=== PATIENT | female | born 1985 | race Hispanic/Latino ===

== ENCOUNTER 2017-01-20 21:50 | Emergency (ER) | payer MEDICAID ==
[~2017-01-20] VITALS: Ht 147.3 cm; Wt 59.1 kg
[2017-01-20 22:06] VITALS: BP 102/71; PULSE 70; RESP 16; O2SAT 100
[2017-01-20 22:51] LABS: BASOPHILS % (AUTO) 0.2 % (0-3); EOSINOPHILS % (AUTO) 2.4 % (0-5); MONOCYTES % (AUTO) 10.4 % (4-12); Mean Corpuscular Hemoglobin 30.6 pg (27.0-35.0); Mean Corpuscular Volume 86.9 fL (81-100); NEUTROPHILS % (AUTO) 61.3 % (40-74); Platelet Count 247 bil/L (150-400)
--- NOTE | 2017-01-20 22:57 | ED.REPORT ---
HPI-Abd Pain F Under 40 Date of Service Jan 20, 2017 ED Provider: Romie Garcia MD Pt is a healthy 32 y/o female presenting to the ED with family c/o epigastric abdominal pain onset yesterday. She is unable to describe the pain and reports it is non-radiating. The pain is not brought on by anything and has decreased somewhat spontaneously. She c/o associated nausea, pleuritic abdominal pain. She denies fever, vomiting. She has not experienced this pain in the past. It is unknown if she is , last period unknown. 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 Nursing Notes Stated Complaint: HEART PAIN Chief Complaint: Chest Pain Nursing Notes Reviewed: Yes ([employer], [email or web address] not reconciled) Allergies: Coded Allergies: No Known Allergies (Unverified Allergy, Unknown, 01/20/17) Scheduled Pnv95/Ferrous Fumarate/FA ( Vitamin Tablet) 28 Mg Iron-800 Mcg Tablet 1 EACH PO DAILY Scheduled PRN Acetaminophen (Acetaminophen) 325 Mg Tablet 650-975 MG PO Q4H PRN PRN For Pain General Time Seen by MD: 22:52 Chief Complaint Abdominal pain Hx Obtained From: Patient, Spouse, Daughter Arrived By: Walk-in Sudden in Onset?: No Onset Occurred: Yesterday Symptom Duration: Since onset Progression since Onset: Constant Location: : Epigastric Quality: Painful Radiation: : Does not radiate Severity: Current: Mild Severity: Maximum: Moderate Recent Healthcare: No recent doctor visit Similar Sx Previous: No Past Medical History Past Medical History Past Surgical History Denies Smoking History Never Smoker Social History Other Social History: Good social support, , Lives with children Ambulatory Status Independent Review of Systems Constitutional: Denies: Chills, Fatigue, Fever Respiratory: Reports: Pleuritic pain, Denies: Non-productive cough, Shortness of breath Cardiovascular: Denies: Chest pain, Edema GI: Reports: Abdominal pain, Nausea, Denies: Vomiting Complete sys rev & neg: except as marked. Neurologic: Denies: Headache, Lightheaded Physical Exam Initial Vital Signs Vital Signs (First) Date Time Temp Pulse Resp B/P Pulse Ox O2 Delivery O2 Flow Rate FiO2 01/20/17 22:06 36.6 70 16 102/71 100 Room Air Initial VS: Reviewed, Vital signs normal Head / Eyes: Atraumatic, Normocephalic, PERRL ENT: Mucous membranes moist, Conjunctiva normal, No scleral icterus Neck: Supple, Full range of motion Extremities: Vascular intact, Neuro intact, No swelling, No tenderness Skin: Warm, Dry, No cyanosis Neurologic: Alert, Oriented, Nonfocal Psychiatric: Mood/affect normal, Behavior normal, Normal thought content General/Constitutional: Awake, Alert, No acute distress, Cooperative, Not toxic appearing Respiratory / Chest: Breath sounds NL, Breath sounds = bilat, No respiratory distress, No rales, No rhonchi, No wheezing Cardiovascular: Heart rate NL, Regular rhythm, Heart sounds NL, Peripheral circulation NL Abdomen: Atraumatic, Soft, No guarding, No rebound, No distention, No palpable mass Tenderness/Guarding/Rebound: Positive: Tender epigastric (trace), Negative: Castillo's sign positive Back: Full range of motion, Painless range of motion Interpretation & Diagnostics Interpretation & Diagnostics: US abdomen: Impression: No cholelithiasis or evidence of acute cholecystitis. No biliary duct dilatation Transmitted to the ED by Rolly Goyal MD Lab Results Interpretation Result Diagram: 01/20/17 2200 01/20/17 220 Test 01/20/17 22:00 01/20/17 22:57 White Blood Count 8.1th/mm3 (3.8-10.1) Red Blood Count 4.57mil/mm3 (3.90-5.20) Hemoglobin 14.0g/dL (12.0-15.6) Hematocrit 39.7% (35.0-46.0) Mean Corpuscular Volume 86.9fL (81-100) Mean Corpuscular Hemoglobin 30.6pg (27.0-35.0) Mean Corpuscular Hemoglobin Concent 35.3% (32.0-37.0) Red Cell Distribution Width 12.6% (12.3-15.4) Platelet Count 247bil/L (150-400) Neutrophils (%) (Auto) 61.3% (40-74) Lymphocytes (%) (Auto) 25.6% (14-46) Monocytes (%) (Auto) 10.4% (4-12) Eosinophils (%) (Auto) 2.4% (0-5) Basophils (%) (Auto) 0.2% (0-3) Sodium Level 138mEq/L (134-144) Potassium Level 3.4mEq/L (3.5-5.2) Chloride Level 100mEq/L (97-108) Carbon Dioxide Level 22mmol/L (18-29) Blood Urea Nitrogen 6mg/dL (6-20) Creatinine 0.46mg/dL (0.57-1.00) Estimat Glomerular Filtration Rate 225mL/min (>59) Glucose Level 91mg/dL (60-99) Calcium Level 9.3mg/dL (8.5-10.1) Magnesium Level 2.1mg/dL (1.6-2.6) Total Bilirubin 0.8mg/dL (0.0-1.2) Aspartate Amino Transf (AST/SGOT) 22U/L (0-50) Alanine Aminotransferase (ALT/SGPT) 32U/L (0-32) Alkaline Phosphatase 82U/L (25-150) Troponin T 0.010ug/L (0.0-0.011) Total Protein 7.5g/dL (6.4-8.4) Albumin 4.1g/dL (3.4-5.0) Lipase 31U/L (13-60) HCG Beta Subunit 5107mIU/mL Hold Roman Top Tube Received (Received) Hold Urine Received (Received) Lab Results Interpretation: CBC normal CMP normal HCG 5107, positive Lipase normal Re-Eval/Medical Decision Med Decision/Clinical Course This is a 32-year-old female speaks only [employer] 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 She apparently described heart pain to somebody, but actually points to her epigastric area. Her symptoms certainly sound epigastric, not cardiac. She has no pulmonary symptoms either. She has no fevers or chills. No lower abdominal symptoms, no vaginal bleeding. She is uncertain if she might be -and a test was positive. Her abdomen is soft nontender. Her physical exam is normal. EKG is normal without ischemic changes. Blood work is normal with no leukocytosis, no markers of pancreatitis or hepatobiliary disease. An ultrasound revealed no evidence of cholecystitis. is positive, ultrasound suggests an early IUP. Patient is informed of results. She is being discharged on Tylenol when necessary pain, as well as vitamins. She is to follow-up in [place] she has worked with her pregnancies. Routine and return precautions reviewed. Source of Hx: Old records Re-Evaluation/Progress : Time of Eval: 00:30 Re-Evaluation/Progress Note: Pt rechecked. Informed pt she is pregannt. She is happy about this. Informed pt of plan for treatment. Pt understands and agrees with plan for treatment. F/U instructions and RTER warnings given. All questions addressed. Differential Diagnosis: Positive: Acute abdominal pain, Intrauterine , Negative: Abscess, Appendicitis, Cholangitis, Cholecystitis, Cholelithiasis, Ectopic preg ruptured, Ectopic , Esophageal rupture, Gun shot wound abdomen, Myocardial infarction, Ovarian cyst, Ovarian torsion, Pancreatitis, Peritonitis, Stab wound abdomen, Trauma, abdominal Counseled Regarding: Diagnosis, Lab results, Need for follow-up, When/why to return to ED Discharge & Departure Primary Impression: Epigastric pain Additional Impression: Weeks of gestation: less than 8 weeks Qualified Code: Z3A.01 - Less than 8 weeks gestation of Disposition: Home Discharge Condition All VS Reviewed: Yes Condition: Stable Additional Instructions: 1. A dangerous cause of the epigastric pain was not identified. Her blood tests were normal, and the ultrasound was normal with no signs of gallbladder or liver disease. This suggests she may have a small case of some stomach inflammation causing the discomfort. Symptoms are expected to improve with time. 2. Tests do reveal that you are , currently less than 8 weeks. He will need to be rechecked. Call Dr. Portillo for an appointment. 3. For pain take acetaminophen 325mg 2-3 tabs up to 3 times a day as needed for pain. 4. Take vitamins daily. 5. Return if new or worsening symptoms occur. Referrals: Ramin Portillo MD (PCP) Paolo Attestation Portions of this note were transcribed by Naveen Ricketts. I, Dr. Garcia personally performed the history, physical exam and medical decision-making; I reviewed and confirmed the accuracy of the information in the transcribed note. Signed by Paolo Groves, 01/20/17 - 23:30 copies to: Ramin Portillo MD, Matthew F MD Jan 20, 2017 22:57 NAVEEN RICKETTS Jan 20, 2017 23:04
[2017-01-20 23:18] LABS: TROPONIN T 0.01 ug/L (0.0-0.011)
[2017-01-20 23:29] LABS: Magnesium 2.1 mg/dL (1.6-2.6)
[2017-01-21 00:01] VITALS: BP 108/73; PULSE 62; RESP 16; O2SAT 97
[2017-01-21] MEDS ORDERED: HYDROcodone-APAP 5-325 mg Tablet PO ONE (00:30)
[2017-01-21] MEDS ORDERED: ACET325T51 PO (00:35)
[2017-01-21] MEDS ORDERED: PNV91TAB6 PO (00:35)
[2017-01-21 01:17] VITALS: BP 116/71; PULSE 87; RESP 16; O2SAT 99
--- NOTE | 2017-01-21 09:45 | DRSVH ---
PROCEDURE: US ABDOMEN, LIMITED ([id number]) INDICATIONS: epigastric, RUQ pain TECHNIQUE: Real-time focused scanning was performed of the abdomen, with image documentation. COMPARISON: [facility], CT, ABD/PELVIS W/CON (PNL), 10/28/2014, 1:31. [facility], US, ABDOMEN SONOGRAM LIMITED, 10/27/2014, 23:33. FINDINGS: Normal liver, gallbladder and no biliary dilatation. IMPRESSION: Limited exam demonstrating normal appearance of the liver and gallbladder. No biliary di latation. Note: These findings are concordant with the preliminary interpretation. Dictated by: Barron PEREZ Interpreted: Toby Clifton MD on 01/21/2017 at 9:43 Transcribed by: RADHA on 01/21/2017 at 9:44 Approved by: Toby Clifton M.D. on 01/21/2017 at 11:36
== END 2017-01-21 01:18 | disposition home or self-care (01) ==
LOC: SED 21:50
DX: O26.91 Pregnancy related conditions, unspecified, first trimester (principal); R10.13 Epigastric pain; Z3A.01 Less than 8 weeks gestation of pregnancy; R07.9 Chest pain, unspecified

== ENCOUNTER 2017-02-03 16:48 | Emergency (ER) | payer MEDICAID ==
[~2017-02-03 16:48] MED LIST: ACET325T51 PO; PNV91TAB6 PO
[2017-02-03 16:54] VITALS: BP 101/67; PULSE 72; RESP 16; O2SAT 100
[2017-02-03 17:40] LABS: APPEARANCE,URINE HAZY (CLEAR,HAZY); COLOR,URINE YELLOW (YELLOW); OCCULT BLOOD,URINE LARGE (NEGATIVE); UROBILINOGEN,URINE NORMAL (NORMAL)
[2017-02-03 18:16] LABS: BASOPHILS % (AUTO) 0.7 % (0-3); EOSINOPHILS % (AUTO) 2.1 % (0-5); MONOCYTES % (AUTO) 6.5 % (4-12); Mean Corpuscular Hemoglobin 30.6 pg (27.0-35.0); Mean Corpuscular Volume 87.7 fL (81-100); NEUTROPHILS % (AUTO) 56.7 % (40-74); Platelet Count 253 bil/L (150-400)
--- NOTE | 2017-02-03 18:41 | ED.REPORT ---
HPI- Female Date of Service Feb 03, 2017 ED Provider: Sky Dejesus MD The patient is a 32 year old female 2 months who presents to the ED due to diffuse, intermittent, abdominal pain for the last 4 days. Associated mild vaginal bleeding and back pain. Her abdomen was cramping and the bleeding became slightly heavy last night. She is seeing a doctor in [facility]. She denies any heart or health issues. A portable machine cutter is used. Nursing Notes Stated Complaint: STOMACH PAIN Chief Complaint: Female Abdominal Pain Nursing Notes Reviewed: Yes Allergies: Coded Allergies: No Known Allergies (Verified Allergy, Unknown, 02/03/17) Scheduled Pnv95/Ferrous Fumarate/FA ( Vitamin Tablet) 28 Mg Iron-800 Mcg Tablet 1 EACH PO DAILY Scheduled PRN Acetaminophen (Acetaminophen) 325 Mg Tablet 650-975 MG PO Q4H PRN PRN For Pain Hydrocodone-Acetaminophen 5-325 mg (Hydrocodone-Acetaminophen 5-325 mg) 1 Each Tablet 1 TABLET PO Q4H PRN PRN For Pain General Time Seen by MD: 18:17 Chief Complaint Abdominal pain... Hx Obtained From: Patient, Spouse, Dredge Engineer Arrived By: Walk-in Sudden in Onset?: Yes Onset Occurred: 4 days ago Context of Onset: , 1st trimester Symptom Duration: Since onset Location: : Abdomen lower Quality: Cramping, Painful Severity: Current: Mild Status: Positive - home urine HCG : 4 Para: 3 Recent Healthcare: Recent doctor visit Similar Sx Previous: Yes Past Medical History Past Medical History Past Surgical History Denies Smoking History Never Smoker Social History Other Social History: Good social support, , Lives with children Ambulatory Status Independent Review of Systems Constitutional: Denies: Fever GI: Reports: Abdominal pain, Denies: Diarrhea, Nausea, Vomiting Female: Reports: Pelvic pain, , Vaginal bleeding - abnl, Denies: Dysuria, Hematuria, Urinary frequency, Urinary urgency Musculoskeletal: Reports: Back pain Complete sys rev & neg: except as marked. Physical Exam Initial Vital Signs Vital Signs (First) Date Time Temp Pulse Resp B/P Pulse Ox O2 Delivery O2 Flow Rate FiO2 02/03/17 16:54 36.7 72 16 101/67 100 Room Air Initial VS: Reviewed Vaginal Bleeding / Discharge: Positive: Bleeding mild bright red blood in vaginal introitus cervix closed no abnormal vaginal discharge General/Constitutional: Awake, Alert, Cooperative Respiratory / Chest: Atraumatic, Breath sounds NL, Breath sounds = bilat, No respiratory distress Cardiovascular: Heart rate NL, Regular rhythm, Heart sounds NL Abdomen: Atraumatic, Soft, Non-tender, No guarding, No rebound, No distention Skin: Atraumatic, Color NL, No rash, Warm, Dry Head / Eyes: Atraumatic, Normocephalic, PERRL, EOMI Upper Extremity / MS: Atraumatic, Inspection NL, No deformity Lower Extremity / Pelvis / MS: Atraumatic, Inspection NL, No deformity Neurologic: Oriented X3, Speech NL, No motor deficits Interpretation & Diagnostics Lab Results Interpretation Result Diagram: 02/03/17 1800 02/03/17 1800 Test 02/03/17 17:23 02/03/17 18:00 Urine Color Yellow (YELLOW) Urine Appearance Hazy (CLEAR,HAZY) Urine pH 7.0 (5.0-8.0) Urine Specific [place] 1.010 (1.003-1.035) Urine Protein Negativemg/dL (NEG,TRACE) Urine Glucose (UA) Negativemg/dL (NEGATIVE) Urine Ketones Negativemg/dL (NEGATIVE) Urine Occult Blood Large (NEGATIVE) Urine Nitrite Negative (NEGATIVE) Urine Bilirubin Negative (NEGATIVE) Urine Urobilinogen Normalmg/dL (NORMAL) Urine Leukocyte Esterase Trace (NEGATIVE) Urine RBC >50/hpf (0-2) Urine WBC 0-5/hpf (0-5) Urine Epithelial Cells Moderate/hpf (NONE-MOD) Urine Crystals None seen (NONE SEEN) Urine Bacteria Few/hpf (NONE-FEW) Urine Hyaline Casts None/lpf (NONE) Urine Granular Casts None seen (NONE SEEN) Urine Waxy Casts None seen (NONE SEEN) Urine Red Blood Cell Casts None seen (NONE SEEN) Urine White Blood Cell Casts None seen (NONE SEEN) Urine Mucus None seen (None Seen) Urine Trichomonas None seen (NONE SEEN) Urine Yeast None (NONE SEEN) Urinalysis Comment None Urine Culture Reflexed Indicated White Blood Count 9.1th/mm3 (3.8-10.1) Red Blood Count 4.57mil/mm3 (3.90-5.20) Hemoglobin 14.0g/dL (12.0-15.6) Hematocrit 40.1% (35.0-46.0) Mean Corpuscular Volume 87.7fL (81-100) Mean Corpuscular Hemoglobin 30.6pg (27.0-35.0) Mean Corpuscular Hemoglobin Concent 34.9% (32.0-37.0) Red Cell Distribution Width 12.4% (12.3-15.4) Platelet Count 253bil/L (150-400) Neutrophils (%) (Auto) 56.7% (40-74) Lymphocytes (%) (Auto) 33.8% (14-46) Monocytes (%) (Auto) 6.5% (4-12) Eosinophils (%) (Auto) 2.1% (0-5) Basophils (%) (Auto) 0.7% (0-3) Sodium Level 141mEq/L (134-144) Potassium Level 4.0mEq/L (3.5-5.2) Chloride Level 104mEq/L (97-108) Carbon Dioxide Level 26mmol/L (18-29) Blood Urea Nitrogen 7mg/dL (6-20) Creatinine 0.50mg/dL (0.57-1.00) Estimat Glomerular Filtration Rate 205mL/min (>59) Glucose Level 86mg/dL (60-99) Calcium Level 9.6mg/dL (8.5-10.1) Magnesium Level 2.2mg/dL (1.6-2.6) Total Bilirubin 0.6mg/dL (0.0-1.2) Aspartate Amino Transf (AST/SGOT) 15U/L (0-50) Alanine Aminotransferase (ALT/SGPT) 20U/L (0-32) Alkaline Phosphatase 78U/L (25-150) Total Protein 7.7g/dL (6.4-8.4) Albumin 4.4g/dL (3.4-5.0) Lipase 32U/L (13-60) HCG Beta Subunit 3217mIU/mL Hold Roman Top Tube Received (Received) Re-Eval/Medical Decision Med Decision/Clinical Course The patient is a 32 year old female 2 months who presents to the ED due to diffuse, intermittent, abdominal pain for the last 4 days. Associated mild vaginal bleeding and back pain. Her abdomen was cramping and the bleeding became slightly heavy last night. She is seeing a doctor in [facility]. She denies any heart or health issues. A portable machine cutter is used. Here in the emergency department the patient is afebrile, hemodynamically stable and in no apparent distress. Pelvic examination reveals closed cervix with bright red blood present in the vaginal vault. Her abdomen is nontender. Laboratory studies were notable as below: CBC unremarkable CMP unremarkable HCG 3217 RH + UA trace leukocytes few bacteria large blood negative nitrites Transvaginal ultrasound was obtained and per my discussion with mold technician intrauterine fetus was visualized measuring approximately 6 weeks 2 days without any detectable heart tones. These ultrasound findings in conjunction with pelvic examination notable for significant blood and history of cramping consistent with an epidural miscarriage. Discussed with CANDLE WRAPPING MACHINE OPERATOR. Recommendation for expectant management and follow-up in clinic tomorrow. At this time, patient is appropriate for discharge. Prior to discharge follow-up and return precautions were reviewed in detail with the patient who verbalized understanding and agreement with the plan. The patient was discharged in stable condition. Re-Evaluation/Progress #1: Time of Eval: 19:03 Re-Evaluation/Progress Note: Pelvic exam performed. Plan for US. Re-Evaluation/Progress #2: Time of Eval: 20:55 Re-Evaluation/Progress Note: Pt rechecked. Informed of probable miscarriage. Counseled Regarding: Diagnosis, Lab results, Need for follow-up, When/why to return to ED Discharge & Departure Impression: Primary Impression: Inevitable Additional Impression: Vaginal bleeding Disposition: Home Discharge Condition All VS Reviewed: Yes Condition: Stable Additional Instructions: Thank you for seeking care at the emergency room. It is difficult for us to make definitive diagnoses in the ED but we believe that you are experiencing a miscarriage. Our primary goal today in the ED was to evaluate you for any life-threatening conditions. Your evaluation was reassuring. You will be discharged with a prescription for pain medication, please take as directed. You should follow-up with your primary doctor at [facility] tomorrow. You should return to the ED immediately if you develop increased bleeding, pain , fevers, vomiting, cough, shortness of breath, chest pain, lightheadedness, weakness or any other concerning signs or symptoms. Thank you for letting us partake in your care today. Narcotic Pain Medicine You have been prescribed a narcotic for pain relief. These drugs are usually combined with acetaminophen (Tylenol#3, Percocet, Darvocet, Anexsia, Vicodin) or aspirin (Empirin#3, Percodan, Synalogs-DC) for increased effect. Narcotics act on the central nervous system to reduce pain; they also impair mental alertness and physical abilities. We advise you not to drink alcohol, drive a car, or operate dangerous equipment when you are taking these drugs. You can lessen stomach irritation from your medicine by taking it with meals or a full glass of water. Common side effects of narcotics are: Nausea and vomiting , heartburn, constipation, dizziness, sleepiness, and mood changes. If you have bothersome side effects or symptoms of an allergic reaction (itching, hives, rash), stop taking your medicine and call your doctor or the emergency room right away. Please keep your narcotic medicine well out of the reach of children. Referrals: Ramin Portillo MD (PCP) Scribe Attestation Portion of this note were transcribed by Margarita Devlin. I, Dr. Dejesus, personally performed the history, physical exam, and medical decision-making: I reviewed and confirmed the accuracy for the information in the transcribed note. Signed by: ruthann Turk, 02/03/17 2000 copies to: Ramin Portillo MD, Beck O MD Feb 03, 2017 18:41 Margarita Devlin Feb 03, 2017 18:49
[2017-02-03 18:46] LABS: Magnesium 2.2 mg/dL (1.6-2.6)
[2017-02-03 20:50] VITALS: BP 103/74; PULSE 65; RESP 20; O2SAT 98
[2017-02-03] MEDS ORDERED: HYDR-4003 PO (20:55)
[2017-02-03] MEDS ORDERED: _HYDROcodone/APAP 5-325 mg Tablet PO PRN (21:00)
--- NOTE | 2017-02-03 21:15 | DRSVH ---
PROCEDURE: US OB<14 WKS+OB TRANSVAG INDICATIONS: cramping, bleeding, preg OUTSIDE/PRIOR DATING DATA: Last menstrual period (LMP): Unknown. LMP-based estimated date of delivery (REED): Unknown. First dating scan (date and location): 01/31/17. Estimated date of delivery (REED) from first dating scan: 09/23/17. TECHNIQUE: Real-time scanning was performed of the fetus and maternal pelvic organs, with image documentation. Endovaginal scanning was also performed to better visualize the fetus and maternal ovaries. COMPARISON: None. FINDINGS: Embryo: OB-FEED MANAGEMENT ADVISOR Ultrasound Procedure Report Early Gestation [employer] [place] Rump Length: 4.20 mm Gestational Age (CRL): 6 weeks, 1 day Summary Fetus Summary Heart Rate: Heart rate is not detected with real-time imaging or with M-mode. Comments: A normal yolk sac is noted. No perigestational bleeds. Measurement variability in dating: +/- 4 weeks by LMP, +/- 7 days by mean sac diameter (use before 6 weeks gestation if crown-rump length not able to be measured), +/- 5 days by crown-rump length (up t o 8 weeks 6 days gestation), +/- 7 days by crown-rump length (from 9 weeks to 13 weeks 6 days gestati on). IMPRESSION: Suspect intrauterine demise. Heart rate is not detectable in the real-time or with M-mode endovaginally. In addition no change in crown-rump length has occurred in the past 3 days to s uggest any growth.. Dictated by: Dean Bermudez M.D. on 02/03/2017 at 21:09 Approved by: Dean Bermudez M.D. on 02/03/2017 at 21:13
[2017-02-03 21:44] VITALS: BP 109/72; PULSE 65; RESP 20; O2SAT 96
== END 2017-02-03 21:46 | disposition home or self-care (01) ==
LOC: SED 16:48
DX: O03.4 Incomplete spontaneous abortion without complication (principal)